=== PATIENT | male | born 1975 | race African-American/Black ===

== ENCOUNTER 2020-10-16 11:36 | Emergency (ER) | payer MEDICAID ==
[~2020-10-16] VITALS: Ht 172.7 cm; Wt 79.5 kg
[2020-10-16 11:43] VITALS: Ht 172.7 cm; Wt 79.5 kg
[2020-10-16 12:55] LABS: BASOPHILS 0.4 % (0-2); EOSINOPHILS 0.7 % (0-7); HEMATOCRIT 43.6 % (42.0-54.0); HEMOGLOBIN 14.5 g/dL (13.5-17.5); LYMPHOCYTES 15.1 % (15-50); MCHC 33.3 g/dL (31.0-37.0); MCV 90.1 fL (80.0-100.0); MONOCYTES 9.9 % (2-11); NEUTROPHILS 73.9 % (40-80); PLATELET COUNT 248 10x3/uL (130-400); RBC 4.84 10x6/uL (4.20-6.10); RDW 13.1 % (11.5-14.5); WBC 5.8 10x3/uL (4.8-10.8)
[2020-10-16 13:10] LABS: ANION GAP 13.2 mmol/L (8-16); CALCIUM 8.8 mg/dL (8.5-10.1); CARBON DIOXIDE 28.7 mmol/L (21.0-32.0); CREATININE - SERUM 1.2 mg/dL (0.6-1.3); POTASSIUM - SERUM 3.9 mmol/L (3.5-5.1)
[2020-10-16 13:16] VITALS: BP 188/125
[2020-10-16 13:23] LABS: BILIRUBIN - TOTAL 0.22 mg/dL (0.2-1.3); PROTEIN - SERUM 7.6 g/dL (6.4-8.2); TROPONIN-I 0.029 ng/mL (0.000-0.060)
[2020-10-16 13:56] LABS: BILIRUBIN NEGATIVE (NEGATIVE); KETONE NEGATIVE (NEGATIVE); NITRITE NEGATIVE (NEGATIVE); UROBILINOGEN NORMAL mg/dL (< 2)
== END 2020-10-16 14:25 | disposition home or self-care (01) ==
LOC: D.ER 11:36
PROVIDERS: Student in an Organized Health Care Education/Training Program
DX: R10.11 Right upper quadrant pain (principal); Z91.19 Patient's noncompliance with other medical treatment and regimen